=== PATIENT | female | born 2000 | race American Indian/Alaskan Native ===

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

== ENCOUNTER 2022-02-11 17:04 | Emergency (ER) | payer SELFPAY ==
--- NOTE | 2022-02-12 02:58 | Emergency Department Report ---
ED ENT HPI - General Chief complaint: Sore Throat Stated complaint: SORE THROAT Time Seen by Provider: 02/12/22 02:30 Source: patient Mode of arrival: Ambulatory Limitations: No Limitations - History of Present Illness MD complaint: sore throat -: Gradual (3), days(s) (3) Location: throat Severity: moderate Quality: aching, dull Consistency: constant Improves with: swallowing Worsens with: swallowing Associated Symptoms: pain with swallowing, sore throat - Related Data Previous Rx's Medication Instructions Recorded Last Taken Type Amoxicillin [Trimox CAP] 500 mg PO BID 10 Days #20 capsule 11/15/18 Unknown Rx Cetirizine HCl [ZyrTEC] 10 mg PO DAILY #30 capsule 11/15/18 Unknown Rx Fluticasone [Flonase] 1 spray NS QDAY #1 bottle 11/15/18 Unknown Rx Cyclobenzaprine [Flexeril] 10 mg PO Q8H PRN #15 tablet 12/30/18 Unknown Rx Ibuprofen [Motrin] 800 mg PO Q8HR PRN #20 tablet 12/30/18 Unknown Rx Fluconazole [Diflucan TAB] 200 mg PO QDAY #1 tablet 02/12/22 Unknown Rx metroNIDAZOLE [Flagyl] 2,000 mg PO ONCE #4 tab 02/12/22 Unknown Rx Allergies Allergy/AdvReac Type Severity Reaction Status Date / Time No Known Allergies Allergy Unverified 11/15/18 18:14 ED Dental HPI - General Chief complaint: Sore Throat Stated complaint: SORE THROAT Time Seen by Provider: 02/12/22 02:30 Source: patient Mode of arrival: Ambulatory Limitations: No Limitations - Related Data Previous Rx's Medication Instructions Recorded Last Taken Type Amoxicillin [Trimox CAP] 500 mg PO BID 10 Days #20 capsule 11/15/18 Unknown Rx Cetirizine HCl [ZyrTEC] 10 mg PO DAILY #30 capsule 11/15/18 Unknown Rx Fluticasone [Flonase] 1 spray NS QDAY #1 bottle 11/15/18 Unknown Rx Cyclobenzaprine [Flexeril] 10 mg PO Q8H PRN #15 tablet 12/30/18 Unknown Rx Ibuprofen [Motrin] 800 mg PO Q8HR PRN #20 tablet 12/30/18 Unknown Rx Fluconazole [Diflucan TAB] 200 mg PO QDAY #1 tablet 02/12/22 Unknown Rx metroNIDAZOLE [Flagyl] 2,000 mg PO ONCE #4 tab 02/12/22 Unknown Rx Allergies Allergy/AdvReac Type Severity Reaction Status Date / Time No Known Allergies Allergy Unverified 11/15/18 18:14 ED Review of Systems ROS: Stated complaint: SORE THROAT Other details as noted in HPI Comment: All other systems reviewed and negative Genitourinary: dysuria, discharge ED Past Medical Hx - Past Medical History Additional medical history: strep throat - Surgical History Past Surgical History?: No - Social History Smoking Status: Never Smoker - Medications Home Medications: Home Medications Medication Instructions Recorded Confirmed Last Taken Type Amoxicillin [Trimox CAP] 500 mg PO BID 10 Days #20 capsule 11/15/18 Unknown Rx Cetirizine HCl [ZyrTEC] 10 mg PO DAILY #30 capsule 11/15/18 Unknown Rx Fluticasone [Flonase] 1 spray NS QDAY #1 bottle 11/15/18 Unknown Rx Cyclobenzaprine [Flexeril] 10 mg PO Q8H PRN #15 tablet 12/30/18 Unknown Rx Ibuprofen [Motrin] 800 mg PO Q8HR PRN #20 tablet 12/30/18 Unknown Rx Fluconazole [Diflucan TAB] 200 mg PO QDAY #1 tablet 02/12/22 Unknown Rx metroNIDAZOLE [Flagyl] 2,000 mg PO ONCE #4 tab 02/12/22 Unknown Rx ED Physical Exam - General Limitations: No Limitations General appearance: alert, in no apparent distress - Head Head exam: Present: atraumatic, normocephalic - Eye Eye exam: Present: normal appearance, PERRL, EOMI Pupils: Present: normal accommodation - ENT ENT exam: Present: normal exam, mucous membranes moist, TM's normal bilaterally, other (Posterior pharynx erythema with some mild swelling and heavy exudate no radha.) - Neck Neck exam: Present: normal inspection, full ROM, lymphadenopathy - Respiratory Respiratory exam: Present: normal lung sounds bilaterally. Absent: respiratory distress, wheezes, rales, chest wall tenderness, accessory muscle use - Cardiovascular Cardiovascular Exam: Present: regular rate, normal rhythm. Absent: systolic murmur, diastolic murmur, rubs, gallop - GI/Abdominal GI/Abdominal exam: Present: soft, normal bowel sounds - Extremities Exam Extremities exam: Present: normal inspection - Back Exam Back exam: Present: normal inspection - Neurological Exam Neurological exam: Present: alert, oriented X3 - Psychiatric Psychiatric exam: Present: normal affect, normal mood - Skin Skin exam: Present: warm, dry, intact, normal color. Absent: rash ED Course Vital Signs 02/11/22 17:44 Temperature 98.9 F Pulse Rate 69 Respiratory 18 Rate Blood Pressure 140/85 O2 Sat by Pulse 100 Oximetry ED Medical Decision Making - Medical Decision Making Problem 1 sore throat 21-year-old female with no history of any compromised nontoxic appearance patient is euvolemic with no trismus no airway compromise unable to tolerate p.o. given history and examination low suspicion for this presentation being caused by peritonsillar abscess, [place], bacterial tracheitis, acute HIV, epiglottitis, retropharyngeal abscess. Critical care attestation.: If time is entered above; I have spent that time in minutes in the direct care of this critically ill patient, excluding procedure time. ED Disposition Clinical Impression: Exudative pharyngitis, Vaginitis Disposition: HOME / SELF CARE / HOMELESS Is pt being admited?: No Does the pt Need Aspirin: No Condition: Stable Instructions: Pharyngitis, Strep Throat, Adult, Sore Throat, [id number], Vaginitis Prescriptions: Fluconazole [Diflucan TAB] 200 mg PO QDAY #1 tablet metroNIDAZOLE [Flagyl] 2,000 mg PO ONCE #4 tab Referrals: [facility] [Provider Group] - 3-5 Days PRIMARY CARE, [Primary Care Provider] - 3-5 Days
[2022-02-12] MEDS ORDERED: PENICILLIN G BENZATHINE 1.2 MILLION UNIT/2 ML INJ IM STA (02:59)
[2022-02-12 03:07] LABS: Bilirubin,Urine NEG (Negative); Blood,Urine SM (Negative); Color,Urine Yellow (Yellow); Protein,Urine <15 mg/dL mg/dL (Negative); Urobilinogen,Urine < 2.0 mg/dL (<2.0)
[2022-02-12 03:19] LABS: Bacteria,Urine 2+ /HPF (Negative); HCG Qualitative,Urine Negative (Negative); Mucus,Urine 2+ /HPF
[2022-02-12 06:27] VITALS: BP 139/88
== END 2022-02-12 06:27 | disposition home or self-care (01) ==
LOC: ED 17:04
DX: J02.9 Acute pharyngitis, unspecified (principal); N76.0 Acute vaginitis
CPT/HCPCS: 81001; 81025; 87086; 96372; 99283; J0561